=== PATIENT | male | born 1995 | race Caucasian/White ===

== ENCOUNTER 2016-12-01 15:07 | Emergency (ER) | payer BC ==
[~2016-12-01] VITALS: Ht 180.3 cm; Wt 103.4 kg
[2016-12-01] MEDS ORDERED: TRAZ300T2 PO (15:26)
[2016-12-01] MEDS ORDERED: NORT25CA PO (15:26)
[2016-12-01] MEDS ORDERED: CLON1TAB4 PO (15:26)
--- NOTE | 2016-12-01 17:56 | NUR ---
Patient discharged to home in stable conditon. Written and verbal after care instructions given. Patient verbalizes understanding of instructions.pt walks in steady gait. pt accompanied by mother.
== END 2016-12-01 17:59 | disposition home or self-care (01) ==
LOC: ER 15:11
DX: M25.512 Pain in left shoulder (principal); M25.562 Pain in left knee
CPT/HCPCS: 73030; A4663

== ENCOUNTER 2018-02-02 23:40 | Emergency (ER) | payer BC ==
[~2018-02-02] VITALS: Ht 182.9 cm; Wt 111.1 kg
[~2018-02-02 23:40] MED LIST: CLON1TAB12 PO; NORT25CA PO; TRAZ300T2 PO
[2018-02-02] MEDS ORDERED: METO-357 PO (23:51)
[2018-02-02] MEDS ORDERED: DIAZ10TA PO (23:51)
[2018-02-03] MEDS ORDERED: HYDROCODONE/APAP 5-325MG TABLET PO ONE
[2018-02-03] MEDS ORDERED: HYDROCODONE/APAP 5-325MG TABLET ONE (00:03)
--- NOTE | 2018-02-03 00:20 | NUR ---
Patient discharged to home in stable conditon. Written and verbal after care instructions given. Patient verbalizes understanding of instructions. Addendum: 02/03/18 at 0021 by BRAYDON Patient states father will come to pick him up.
== END 2018-02-03 00:21 | disposition home or self-care (01) ==
LOC: ER 23:42
DX: G89.29 Other chronic pain (principal); M25.561 Pain in right knee; Z79.899 Other long term (current) drug therapy
CPT/HCPCS: A4663